=== PATIENT | female | born 1950 | race Caucasian/White ===

== ENCOUNTER 2018-04-09 16:33 | Observation (INO) | payer MEDICARE ==
--- NOTE | 2018-04-09 17:11 | ERPHSYRPT ---
- History of Present Illness Source: patient Exam Limitations: no limitations Patient Subjective Stated Complaint: Dizzy since Monday, sitting in chair and suddenly gets out of breath and gets dizzy Triage Nursing Assessment: Pt stated that she has been dizzy since Monday regardless of what she is doing, gets out of breath sitting in a chair, mild weakness in upper and lower extremeties, pulses normal, BP 88/49, 3L NC, short of breath, PERRL, denies pain, denies N&V Timing/Duration: day(s) (2 days) Severity: moderate Modifying Factors: Improves With: nothing Associated Symptoms: shortness of breath, weakness, other (dizzy), No nausea, No vomiting, No abdominal pain, No heartburn, No diaphoresis, No cough, No chills, No chest pain, No fever, No headaches, No loss of appetite, No malaise, No rash, No syncope, No seizure Hx Tetanus, Diphtheria Vaccination/Date Given: Yes (2013) Hx Influenza Vaccination/Date Given: No Hx Pneumococcal Vaccination/Date Given: No <LISA ROBLES - Last Filed: 04/09/18 19:11> <KARLA ALEX - Last Filed: 04/09/18 22:19> - History of Present Illness Time Seen by Provider: 04/09/18 17:02 Physician History: 68-year-old white female arrives with complaint of feeling dizzy, weak short of breath symptoms for 2 days. Patient states that she'll be sitting in her chair and she will suddenly began feeling dizzy and feeling weak and short of breath. She denies any chest pain no fevers no nausea no vomiting no urinary symptoms. Past medical history includes COPD. Past surgical history includes cholecystectomy, left lung surgery. (LISA ROBLES) Allergies/Adverse Reactions: No Known Drug Allergies Allergy (Verified 04/09/18 17:00) Home Medications: Atorvastatin Calcium [Lipitor 20MG Tablet] 20 mg PO DAILY 04/09/18 [History] Budesonide/Formoterol Fumarate [Symbicort 80-4.5 Mcg Inhaler] 1 inh PO BID 04/09 [History] Calcium Carbonate/Vitamin D3 [Calcium 600 + D3 Softgel] 1 each PO BID 04/09/18 [ History] Clonazepam 0.5 mg [Klonopin 0.5 MG] 0.5 mg PO DAILY 04/09/18 [History] Famotidine 20 mg [Pepcid 20 MG] 20 mg PO DAILY 04/09/18 [History] Isosorbide Mononitrate [Isosorbide Mononitrate ER] 30 mg PO DAILY 04/09/18 [ History] Lisinopril 40 mg PO DAILY 04/09/18 [History] Omeprazole 20 MG [Prilosec 20 mg] 20 mg PO DAILY 04/09/18 [History] Tiotropium [place] [Spiriva] 8 inh PO DAILY 04/09/18 [History] - Review of Systems Constitutional: Weakness, No Fever, No Chills Eyes: No Symptoms Ears, Nose, & Throat: No Symptoms Respiratory: Dyspnea, No Cough, No Cyanosis, No Dyspnea on Exertion (GOMEZ), No Stridor, No Wheezing Cardiac: No Chest Pain, No Edema, No Syncope Abdominal/Gastrointestinal: No Abdominal Pain, No Nausea, No Vomiting, No Diarrhea Genitourinary Symptoms: No Dysuria Musculoskeletal: No Back Pain, No Neck Pain Skin: No Rash Neurological: No Dizziness, No Focal Weakness, No Sensory Changes Psychological: No Symptoms Endocrine: No Symptoms All Other Systems: Reviewed and Negative <LISA ROBLES - Last Filed: 04/09/18 19:11> - Past Medical History Pertinent Past Medical History: Yes Neurological History: No Pertinent History ENT History: No Pertinent History Cardiac History: No Pertinent History, Hypertension Respiratory History: COPD Endocrine Medical History: No Pertinent History Musculoskeletal History: No Pertinent History GI Medical History: No Pertinent History, Hernia History: No Pertinent History Psycho-Social History: No Pertinent History Female Reproductive Disorders: No Pertinent History - Past Surgical History Past Surgical History: Yes Neuro Surgical History: No Pertinent History Cardiac: No Pertinent History Respiratory: No Pertinent History Gastrointestinal: Cholecystectomy, Other Genitourinary: No Pertinent History Musculoskeletal: No Pertinent History Female Surgical History: Hysterectomy Other Surgical History: 1/3 of LEFT LUNG, perforated ulcer in stomach - Social History Smoking Status: Former smoker Exposure to second hand smoke: No Drug Use: none Patient Lives Alone: No - Female History Hx Now: No <LISA ROBLES - Last Filed: 04/09/18 19:11> - Physical Exam General Appearance: no apparent distress, alert Eye Exam: PERRL/EOMI, eyes nml inspection Ears, Nose, Throat Exam: normal ENT inspection, TMs normal, pharynx normal, moist mucous membranes Neck Exam: normal inspection, non-tender, supple, full range of motion Respiratory Exam: normal breath sounds, lungs clear, No respiratory distress Cardiovascular Exam: regular rate/rhythm (mother really impressed ), normal heart sounds, normal peripheral pulses, capillary refill <2 sec Gastrointestinal/Abdomen Exam: soft, normal bowel sounds, No tenderness, No mass Back Exam: normal inspection, normal range of motion, No CVA tenderness, No vertebral tenderness Extremity Exam: normal inspection, normal range of motion, pelvis stable Neurologic Exam: alert, oriented x 3, cooperative, public health technologist II-XII nml as tested, normal mood/affect, nml cerebellar function, nml station & gait, sensation nml, No motor deficits Skin Exam: normal color, warm, dry, No rash SpO2 Interpretation: normal (98%) SpO2: 98 <LISA ROBLES - Last Filed: 04/09/18 19:11> - Nursing Vital Signs Nursing Vital Signs: Initial Vital Signs Temperature 97.7 F 04/09/18 16:46 Pulse Rate 100 H 04/09/18 16:46 Blood Pressure 94/57 04/09/18 16:46 O2 Sat by Pulse Oximetry 98 04/09/18 16:46 Pain Scale Pain Intensity 0 - Course Nursing assessment & vital signs reviewed: Yes - CT Exams Head CT Interpretation: Discussed w/radiologist (head CT: No comparisons. Minimal left maxillary sinus disease and partial opacification of both mastoid air cells. Remaining CT head negative) <LISA ROBLES - Last Filed: 04/09/18 19:11> - CT Exams Head CT Interpretation: Discussed w/radiologist Chest CT Interpretation: Tele-radiologist Report (per Dr Yadav), Other (stable emphysema with worsening scattering fibrosis/scarring, hiatal hernia with partial intrathoracic stomach.) <KARLA ALEX - Last Filed: 04/09/18 22:19> Ordered Tests: Active Orders 24 hr Category Date Time Status Accucheck STAT Care 04/09/18 17:06 Active Chief Of Vital Statistics STAT Care 04/09/18 17:06 Active EKG-ER Only STAT Care 04/09/18 17:06 Active IV Insertion STAT Care 04/09/18 17:06 Active Orthostatic Vital Signs STAT Care 04/09/18 17:08 Active CHEST 1 VIEW (PORTABLE) Stat Exams 04/09/18 17:06 Taken CHEST WITHOUT CONTRAST [CT] Stat Exams 04/09/18 19:28 Taken HEAD WITHOUT CONTRAST [CT] Stat Exams 04/09/18 17:06 Taken CBC W DIFF Stat Lab 04/09/18 17:05 Completed CMP Stat Lab 04/09/18 17:05 Completed CULTURE,URINE Stat Lab 04/09/18 19:00 Received D-DIMER QUANTITATION Stat Lab 04/09/18 Completed ETHYL ALCOHOL Stat Lab 04/09/18 17:05 Completed NT PRO BNP Stat Lab 04/09/18 17:05 Completed TROPONIN Q3H Lab 04/09/18 17:05 Completed TROPONIN Q3H Lab 04/09/18 20:22 Completed TROPONIN Q3H Lab 04/09/18 23:15 Ordered TROPONIN Q3H Lab 04/10/18 02:15 Ordered TROPONIN Q3H Lab 04/10/18 05:15 Ordered UA W/RFX UR CULTURE Stat Lab 04/09/18 19:00 Completed VENOUS BLOOD GAS Stat Lab 04/09/18 17:12 Completed Respiratory Nebulizer STAT RT 04/09/18 18:22 Completed Respiratory Therapy Assessment DAILY RT 04/09/18 18:41 Active Medication Summary Generic Name Dose Route Start Last Admin Trade Name Freq PRN Reason Stop Dose Admin Sodium Chloride 1,000 mls @ 100 mls/hr 04/09/18 17:15 04/09/18 17:15 Sodium Chloride 0.9% 1000 Ml IV 05/09/18 17:14 100 mls/hr .Q10H CHRIS Administration Discontinued Medications Generic Name Dose Route Start Last Admin Trade Name Freq PRN Reason Stop Dose Admin Albuterol/Ipratropium 3 ml 04/09/18 18:22 04/09/18 18:30 Duoneb 0.5-3 Mg/3 Ml Neb IH 04/09/18 18:23 3 ml STAT ONE Administration Albuterol/Ipratropium Confirm 04/09/18 18:28 Duoneb 0.5-3 Mg/3 Ml Neb Administered 04/09/18 18:29 Dose 3 ml IH .STK-MED ONE Lab/Rad Data: Laboratory Result Diagrams 04/09/18 17:05 04/09/18 17:05 Laboratory Results 04/09/18 04/09/18 04/09/18 Range/Units Unknown 20:22 19:00 WBC (4.0-10.5) K/mm3 RBC (4.1-5.4) M/mm3 Hgb (12.0-16.0) gm/dl Hct (35-47) % MCV (78-100) fl MCH (26-32) pg MCHC (32-36) g/dl RDW (11.5-14.0) % Plt Count (150-450) K/mm3 MPV (6-9.5) fl Gran % (36.0-66.0) % Eos # (Auto) (0-0.5) Absolute Lymphs (auto) (1.0-4.6) Absolute Monos (auto) (0.0-1.3) Lymphocytes % (24.0-44.0) % Monocytes % (0.0-12.0) % Eosinophils % (0.00-5.0) % Basophils % (0.0-0.4) % Absolute Granulocytes (1.4-6.9) Basophils # (0-0.4) D-Dimer 797 H* (215-500) ng/mL pO2/FiO2 Ratio % VBG pH (7.32-7.42) VBG pCO2 at Pat Temp (42-55) mm/Hg VBG pO2 at Pat Temp (25-40) mm/Hg VBG HCO3 (22-28) meq/L VBG O2 Sat (Blanca) (95-100) VBG Base Excess (-2.0-2.0) VBG Hemoglobin VBG Carboxyhemoglobin (0.0-6.9) % T HGB POC Potassium (3.5-5.1) Sodium (137-145) mmol/L Potassium (3.5-5.1) mmol/L Chloride (98-107) mmol/L Carbon Dioxide (22-30) mmol/L Anion Gap (5-15) MEQ/L BUN (7-17) mg/dL Creatinine (0.52-1.04) mg/dL Estimated GFR ML/MIN Glucose (74-106) mg/dL Calcium (8.4-10.2) mg/dL Total Bilirubin (0.2-1.3) mg/dL AST (14-36) U/L ALT (0-35) U/L Alkaline Phosphatase (38-126) U/L Troponin I < 0.012 (0.000-0.034) ng/mL NT-Pro-B Natriuret Pep (0-900) pg/mL Serum Total Protein (6.3-8.2) g/dL Albumin (3.5-5.0) g/dL Urine Color DARK YELLOW (YELLOW) Urine Appearance CLOUDY (CLEAR) Urine pH 5.0 (5-6) Ur Specific [place] 1.020 (1.005-1.025) Urine Protein 30 (Negative) Urine Ketones TRACE (NEGATIVE) Urine Blood NEGATIVE (0-5) Pedro/ul Urine Nitrite NEGATIVE (NEGATIVE) Urine Bilirubin NEGATIVE (NEGATIVE) Urine Urobilinogen NEGATIVE (0-1) mg/dL Ur Leukocyte Esterase MODERATE (NEGATIVE) Urine WBC (Auto) 16-25 (0-5) /HPF Urine RBC (Auto) 6-10 (0-2) /HPF U Hyaline Cast (Auto) 26-50 (0-2) /LPF U Epithel Cells (Auto) FEW (FEW) /HPF Urine Bacteria (Auto) FEW (NEGATIVE) /HPF Urine Mucus (Auto) SLIGHT (NEGATIVE) /HPF Urine Culture Reflexed YES (NO) Urine Glucose NEGATIVE (NEGATIVE) mg/dL Ethyl Alcohol (0-10) mg/dL 04/09/18 04/09/18 04/09/18 Range/Units 17:12 17:05 17:05 WBC (4.0-10.5) K/mm3 RBC (4.1-5.4) M/mm3 Hgb (12.0-16.0) gm/dl Hct (35-47) % MCV (78-100) fl MCH (26-32) pg MCHC (32-36) g/dl RDW (11.5-14.0) % Plt Count (150-450) K/mm3 MPV (6-9.5) fl Gran % (36.0-66.0) % Eos # (Auto) (0-0.5) Absolute Lymphs (auto) (1.0-4.6) Absolute Monos (auto) (0.0-1.3) Lymphocytes % (24.0-44.0) % Monocytes % (0.0-12.0) % Eosinophils % (0.00-5.0) % Basophils % (0.0-0.4) % Absolute Granulocytes (1.4-6.9) Basophils # (0-0.4) D-Dimer (215-500) ng/mL pO2/FiO2 Ratio 32.0 % VBG pH 7.34 (7.32-7.42) VBG pCO2 at Pat Temp 45 (42-55) mm/Hg VBG pO2 at Pat Temp 32 (25-40) mm/Hg VBG HCO3 24.3 (22-28) meq/L VBG O2 Sat (Blanca) 63.7 L (95-100) VBG Base Excess -1.6 (-2.0-2.0) VBG Hemoglobin 10.3 VBG Carboxyhemoglobin 3.2 (0.0-6.9) % T HGB POC Potassium 4.4 (3.5-5.1) Sodium 140 (137-145) mmol/L Potassium 4.6 (3.5-5.1) mmol/L Chloride 103 (98-107) mmol/L Carbon Dioxide 24 (22-30) mmol/L Anion Gap 16.9 H (5-15) MEQ/L BUN 24 H (7-17) mg/dL Creatinine 1.52 H (0.52-1.04) mg/dL Estimated GFR 36.4 ML/MIN Glucose 102 (74-106) mg/dL Calcium 9.2 (8.4-10.2) mg/dL Total Bilirubin 0.40 (0.2-1.3) mg/dL AST 31 (14-36) U/L ALT 21 (0-35) U/L Alkaline Phosphatase 124 (38-126) U/L Troponin I < 0.012 (0.000-0.034) ng/mL NT-Pro-B Natriuret Pep 224 (0-900) pg/mL Serum Total Protein 6.6 (6.3-8.2) g/dL Albumin 3.8 (3.5-5.0) g/dL Urine Color (YELLOW) Urine Appearance (CLEAR) Urine pH (5-6) Ur Specific [place] (1.005-1.025) Urine Protein (Negative) Urine Ketones (NEGATIVE) Urine Blood (0-5) Pedro/ul Urine Nitrite (NEGATIVE) Urine Bilirubin (NEGATIVE) Urine Urobilinogen (0-1) mg/dL Ur Leukocyte Esterase (NEGATIVE) Urine WBC (Auto) (0-5) /HPF Urine RBC (Auto) (0-2) /HPF U Hyaline Cast (Auto) (0-2) /LPF U Epithel Cells (Auto) (FEW) /HPF Urine Bacteria (Auto) (NEGATIVE) /HPF Urine Mucus (Auto) (NEGATIVE) /HPF Urine Culture Reflexed (NO) Urine Glucose (NEGATIVE) mg/dL Ethyl Alcohol < 10 (0-10) mg/dL 04/09/18 Range/Units 17:05 WBC 6.4 (4.0-10.5) K/mm3 RBC 3.83 L (4.1-5.4) M/mm3 Hgb 9.8 L (12.0-16.0) gm/dl Hct 31.8 L (35-47) % MCV 83.0 (78-100) fl MCH 25.5 L (26-32) pg MCHC 30.8 L (32-36) g/dl RDW 18.0 H (11.5-14.0) % Plt Count 429 (150-450) K/mm3 MPV 9.5 (6-9.5) fl Gran % 70.9 H (36.0-66.0) % Eos # (Auto) 0.28 (0-0.5) Absolute Lymphs (auto) 1.06 (1.0-4.6) Absolute Monos (auto) 0.48 (0.0-1.3) Lymphocytes % 16.6 L (24.0-44.0) % Monocytes % 7.5 (0.0-12.0) % Eosinophils % 4.4 (0.00-5.0) % Basophils % 0.6 (0.0-0.4) % Absolute Granulocytes 4.51 (1.4-6.9) Basophils # 0.04 (0-0.4) D-Dimer (215-500) ng/mL pO2/FiO2 Ratio % VBG pH (7.32-7.42) VBG pCO2 at Pat Temp (42-55) mm/Hg VBG pO2 at Pat Temp (25-40) mm/Hg VBG HCO3 (22-28) meq/L VBG O2 Sat (Blanca) (95-100) VBG Base Excess (-2.0-2.0) VBG Hemoglobin VBG Carboxyhemoglobin (0.0-6.9) % T HGB POC Potassium (3.5-5.1) Sodium (137-145) mmol/L Potassium (3.5-5.1) mmol/L Chloride (98-107) mmol/L Carbon Dioxide (22-30) mmol/L Anion Gap (5-15) MEQ/L BUN (7-17) mg/dL Creatinine (0.52-1.04) mg/dL Estimated GFR ML/MIN Glucose (74-106) mg/dL Calcium (8.4-10.2) mg/dL Total Bilirubin (0.2-1.3) mg/dL AST (14-36) U/L ALT (0-35) U/L Alkaline Phosphatase (38-126) U/L Troponin I (0.000-0.034) ng/mL NT-Pro-B Natriuret Pep (0-900) pg/mL Serum Total Protein (6.3-8.2) g/dL Albumin (3.5-5.0) g/dL Urine Color (YELLOW) Urine Appearance (CLEAR) Urine pH (5-6) Ur Specific [place] (1.005-1.025) Urine Protein (Negative) Urine Ketones (NEGATIVE) Urine Blood (0-5) Pedro/ul Urine Nitrite (NEGATIVE) Urine Bilirubin (NEGATIVE) Urine Urobilinogen (0-1) mg/dL Ur Leukocyte Esterase (NEGATIVE) Urine WBC (Auto) (0-5) /HPF Urine RBC (Auto) (0-2) /HPF U Hyaline Cast (Auto) (0-2) /LPF U Epithel Cells (Auto) (FEW) /HPF Urine Bacteria (Auto) (NEGATIVE) /HPF Urine Mucus (Auto) (NEGATIVE) /HPF Urine Culture Reflexed (NO) Urine Glucose (NEGATIVE) mg/dL Ethyl Alcohol (0-10) mg/dL - Progress Progress: improved <LISA ROBLES - Last Filed: 04/09/18 19:11> - Progress Discussed with : Cecilia Counseled pt/family regarding: lab results, diagnosis, rad results <KARLA ALEX - Last Filed: 04/09/18 22:19> - Progress Progress Note: 04/09/18 19:10 patient patient's case is discussed with Dr. Alex, He will assume care of this patient secondary to shift change, (LISA ROBLES) 04/09/18 19:27 Pt care discussed and care accepted from Dr Robles at 19:00. (KARLA ALEX) <LISA ROBLES - Last Filed: 04/09/18 19:11> - Departure Time of Disposition: 22:12 Departure Disposition: Observation (per Dr Gee Medrano) Critical Care Time: No <KARLA ALEX - Last Filed: 04/09/18 22:19> - Departure Clinical Impression: Dyspnea, Renal failure, UTI (urinary tract infection) Condition: Stable Referrals: MENDOZA VALDIVIA MD [ACTIVE STAFF] -
[2018-04-09] MEDS ORDERED: Sodium Chloride 0.9% 1000 ML 1,000 ML IV SCH (17:15)
[2018-04-09 17:16] LABS: VBG BASE EXCESS -1.6 (-2.0-2.0); VBG CARBOXYHEMOGLOBIN 3.2 % T HGB (0.0-6.9); VBG HCO3- 24.3 meq/L (22-28); VBG HEMOGLOBIN 10.3; VBG O2 SATURATION 63.7 (95-100); VBG POTASSIUM 4.4 (3.5-5.1); VBG pH 7.34 (7.32-7.42)
[2018-04-09] MEDS ORDERED: Sodium Chloride 0.9% 1000 ML 1,000 ML ONE (17:16)
[2018-04-09 17:32] LABS: BASOPHIL % 0.6 % (0.0-0.4); Basophil (Absolute #) 0.04 (0-0.4); Eosinophil % 4.4 % (0.00-5.0); Eosinophil (Absolute #) 0.28 (0-0.5); Granulocyte Absolute (ANC) 4.51 (1.4-6.9); Granulocytes % 70.9 % (36.0-66.0); Hematocrit 31.8 % (35-47); Hemoglobin 9.8 gm/dl (12.0-16.0); Lymphocyte (Absolute #) 1.06 (1.0-4.6); Lymphocytes % 16.6 % (24.0-44.0); Mean Corpuscular Hgb Concent. 30.8 g/dl (32-36); Mean Platelet Volume 9.5 fl (6-9.5); Monocyte (Absolute #) 0.48 (0.0-1.3); Monocytes % 7.5 % (0.0-12.0); Platelet Count 429 K/mm3 (150-450); Red Blood Count 3.83 M/mm3 (4.1-5.4); White Blood Count 6.4 K/mm3 (4.0-10.5)
[2018-04-09 17:41] LABS: Mean Corpuscular Hemoglobin 25.5 pg (26-32)
[2018-04-09 17:59] LABS: ALBUMIN 3.8 g/dL (3.5-5.0); ALKALINE PHOSPHATASE 124 U/L (38-126); ANION GAP 16.9 MEQ/L (5-15); BLOOD UREA NITROGEN 24 mg/dL (7-17); CHLORIDE 103 mmol/L (98-107); Calcium 9.2 mg/dL (8.4-10.2); Carbon Dioxide 24 mmol/L (22-30); Creatinine 1 1.52 mg/dL (0.52-1.04); Glucose 102 mg/dL (74-106); NT PRO BNP 224 pg/mL (0-900); Potassium 4.6 mmol/L (3.5-5.1); SGOT/AST 31 U/L (14-36); SGPT/ALT 21 U/L (0-35); SODIUM 140 mmol/L (137-145); Total Protein 6.6 g/dL (6.3-8.2)
[2018-04-09 18:02] LABS: ETHYL ALCOHOL < 10 mg/dL (0-10)
[2018-04-09] MEDS ORDERED: DUONEB 0.5-3 MG/3 ml Neb IH ONE ×2 (18:22→18:28)
[2018-04-09 19:46] LABS: Appearance CLOUDY (CLEAR); Bilirubin NEGATIVE (NEGATIVE); Blood NEGATIVE Ery/ul (0-5); Glucose NEGATIVE (NEGATIVE); Ketones TRACE (NEGATIVE); Leukocyte Esterase MODERATE (NEGATIVE); Nitrite NEGATIVE (NEGATIVE); Protein,Urine Dip 30 (Negative); Urobilinogen NEGATIVE mg/dL (0-1)
[2018-04-10] MEDS: Sodium Chloride 0.9% 1000 ML 1,000 ML IV SCH ×2 (03:22→19:49)
[2018-04-10 05:59] LABS: Hematocrit 29.4 % (35-47); Mean Cell Volume 83.3 fl (78-100); Mean Corpuscular Hgb Concent. 30.6 g/dl (32-36); Mean Platelet Volume 9.6 fl (6-9.5); Platelet Count 422 K/mm3 (150-450); Red Blood Count 3.53 M/mm3 (4.1-5.4); Red Cell Distribution Width 18.4 % (11.5-14.0); White Blood Count 7.2 K/mm3 (4.0-10.5)
[2018-04-10 06:02] LABS: Mean Corpuscular Hemoglobin 25.4 pg (26-32)
[2018-04-10 06:13] LABS: ANION GAP 10.5 MEQ/L (5-15); Calcium 8.8 mg/dL (8.4-10.2); Creatinine 1 1.25 mg/dL (0.52-1.04); Potassium 4.2 mmol/L (3.5-5.1)
[2018-04-10] MEDS: PROVENTIL 2.5 MG/3 ML NEB IH SCH ×4 (06:52→20:09)
[2018-04-10] MEDS: Advair Hfa 230/21 Mcg COMMON CANISTER IH SCH ×2 (06:53→20:09)
[2018-04-10] MEDS ORDERED: Spiriva 18 Mcg/Cap Inhaler IH SCH (07:00)
[2018-04-10] MEDS ORDERED: ENOXAPARIN SODIUM SQ ONE (08:03)
[2018-04-10] MEDS ORDERED: solu-MEDROL 125 MG IV ONE (08:14)
--- NOTE | 2018-04-10 08:14 | PCM.HP ---
History of Present Illness - Chief Complaint Chief Complaint: COPD/ASTHMA Date: 04/10/18 History of Present Illness: is a 68 year old female. patient of Dr. Ferreira pulmonology who states she has no primary care doctor and has been on oxygen for 8 years with partial lung resection 3 years ago for benign nodules. She had increasing shortness of breath and lightheadedness and weakness for the past 5 days. She has chronic cough. She has been using her symbicort and spirivia. She denies chest pain or productive coughing. She denies history of blood clots and no pain or swelling in the legs. - Review of Systems Constitutional: Fatigue, Weakness, No Fever, No Chills, No Night Sweats Eyes: No Symptoms Ears, Nose, & Throat: No Symptoms, Hearing Changes, Nose Congestion, Sinus Drainage Respiratory: Cough, Short Of Breath, Wheezing Cardiac: No Chest Pain, No Edema, No Palpitations, No Syncope, No Orthopnea Abdominal/Gastrointestinal: No Abdominal Pain, No Nausea, No Vomiting, No Diarrhea, No Constipation, No Hematochezia, No Melena Genitourinary Symptoms: Frequency, No Dysuria Musculoskeletal: Arthralgias, Back Pain, No Neck Pain Skin: No Rash Neurological: Dizziness, No Focal Weakness, No Headache, No Seizure, No Sensory Changes, No Speech Changes Psychological: No Symptoms Endocrine: No Symptoms Hematologic/Lymphatic: No Symptoms Immunological/Allergic: No Symptoms Medications & Allergies Home Medications: Home Medication List Atorvastatin Calcium [Lipitor 20MG Tablet] 20 mg PO DAILY 04/09/18 [History Confirmed 04/10/18] Budesonide/Formoterol Fumarate [Symbicort 80-4.5 Mcg Inhaler] 1 inh PO BID 04/09 [History Confirmed 04/10/18] Calcium Carbonate/Vitamin D3 [Calcium 600 + D3 Softgel] 1 each PO BID 04/09/18 [ History Confirmed 04/10/18] Clonazepam 0.5 mg [Klonopin 0.5 MG] 0.5 mg PO DAILY 04/09/18 [History Confirmed 04/10/18] Famotidine 20 mg [Pepcid 20 MG] 20 mg PO DAILY 04/09/18 [History Confirmed 04/10/18] Isosorbide Mononitrate [Isosorbide Mononitrate ER] 30 mg PO DAILY 04/09/18 [ History Confirmed 04/10/18] Lisinopril 40 mg PO DAILY 04/09/18 [History Confirmed 04/10/18] Omeprazole 20 MG [Prilosec 20 mg] 20 mg PO DAILY 04/09/18 [History Confirmed ] Tiotropium [place] [Spiriva] 8 inh PO DAILY 04/09/18 [History Confirmed 04/10/18 ] Allergies/Adverse Reactions: Allergies Allergy/AdvReac Type Severity Reaction Status Date / Time No Known Drug Allergies Allergy Verified 04/09/18 17:00 - Past Medical History Past Medical History: Yes Neurological History: No Pertinent History ENT History: No Pertinent History Cardiac History: Hypertension Respiratory History: Asthma, COPD Endocrine Medical History: No Pertinent History Musculoskelatal History: No Pertinent History GI Medical History: Hernia History: No Pertinent History Pyscho-Social History: No Pertinent History Reproductive Disorders: No Pertinent History - Female History Are you now?: No - Past Surgical History Past Surgical History: Yes Neuro Surgical History: No Pertinent History Cardiac History: No Pertinent History Respiratory Surgery: No Pertinent History GI Surgical History: Cholecystectomy, Other Genitourinary Surgical Hx: No Pertinent History Musculskeletal Surgical Hx: No Pertinent History Female Surgical History: Hysterectomy Other Surgical History: 1/3 of LEFT LUNG, perforated ulcer in stomach - Social History Smoking Status: Former smoker How long have you smoked: 12 Exposure to second hand smoke: Yes Alcohol: None Drug Use: none - Physical Exam Vital Signs: Vital Signs - 24 hr Temp Pulse Resp BP Pulse Ox 04/10/18 07:10 98.1 F 84 20 126/66 96 04/10/18 06:55 91 H 18 97 04/10/18 04:00 98.1 F 85 24 131/57 98 04/10/18 03:51 96 H 26 H 128/62 97 04/10/18 03:50 105 H 28 H 127/59 91 L 04/10/18 03:49 99 H 26 H 123/55 96 04/10/18 03:42 96 04/10/18 02:20 98.0 F 94 H 24 131/61 95 04/10/18 02:18 95 04/10/18 01:58 98 F 94 H 24 131/61 95 04/10/18 00:33 95 H 17 125/48 96 04/09/18 22:35 71 18 95 04/09/18 20:50 95 H 25 H 118/57 97 04/09/18 20:00 98.1 F 18 118/57 96 04/09/18 19:11 98 04/09/18 19:05 97.7 F 96 H 22 113/58 97 04/09/18 18:41 96 H 22 97 04/09/18 16:46 97.7 F 100 H 94/57 98 Oxygen-Last 24 hours O2 Percentage 2 Liters = 28% O2 Percentage 2 Liters = 28% O2 Percentage 3 Liters = 32% O2 Percentage 2 Liters = 28% O2 Percentage 2 Liters = 28% O2 Percentage 2 Liters = 28% O2 Percentage 2 Liters = 28% O2 Percentage 2 Liters = 28% O2 Percentage 2 Liters = 28% General Appearance: no apparent distress, alert Neurologic Exam: alert, oriented x 3, cooperative, normal mood/affect, sensation nml, No motor deficits Eye Exam: PERRL/EOMI, eyes nml inspection, pale conjunctivae, No scleral icterus Ears, Nose, Throat Exam: pharynx normal, moist mucous membranes, dry mucous membranes Neck Exam: normal inspection, non-tender, supple, full range of motion Respiratory Exam: crackles/rales, wheezing Cardiovascular Exam: normal peripheral pulses, tachycardia, No edema Gastrointestinal/Abdomen Exam: soft, normal bowel sounds, No tenderness, No mass Back Exam: normal inspection, normal range of motion, No CVA tenderness, No vertebral tenderness Extremity Exam: normal inspection, normal range of motion, pelvis stable Skin Exam: normal color, warm, dry, No rash Lymphatic Exam: No adenopathy Results - Labs Lab/Micro Results: Accuchecks Accucheck Value: 103 Lab Results-Last 24 Hours 04/09/18 04/09/18 04/09/18 Range/Units 17:05 17:05 17:05 WBC 6.4 (4.0-10.5) K/mm3 RBC 3.83 L (4.1-5.4) M/mm3 Hgb 9.8 L (12.0-16.0) gm/dl Hct 31.8 L (35-47) % MCV 83.0 (78-100) fl MCH 25.5 L (26-32) pg MCHC 30.8 L (32-36) g/dl RDW 18.0 H (11.5-14.0) % Plt Count 429 (150-450) K/mm3 MPV 9.5 (6-9.5) fl Gran % 70.9 H (36.0-66.0) % Eos # (Auto) 0.28 (0-0.5) Absolute Lymphs (auto) 1.06 (1.0-4.6) Absolute Monos (auto) 0.48 (0.0-1.3) Lymphocytes % 16.6 L (24.0-44.0) % Monocytes % 7.5 (0.0-12.0) % Eosinophils % 4.4 (0.00-5.0) % Basophils % 0.6 (0.0-0.4) % Absolute Granulocytes 4.51 (1.4-6.9) Basophils # 0.04 (0-0.4) D-Dimer (215-500) ng/mL pO2/FiO2 Ratio % VBG pH (7.32-7.42) VBG pCO2 at Pat Temp (42-55) mm/Hg VBG pO2 at Pat Temp (25-40) mm/Hg VBG HCO3 (22-28) meq/L VBG O2 Sat (Blanca) (95-100) VBG Base Excess (-2.0-2.0) VBG Hemoglobin VBG Carboxyhemoglobin (0.0-6.9) % T HGB POC Potassium (3.5-5.1) Sodium 140 (137-145) mmol/L Potassium 4.6 (3.5-5.1) mmol/L Chloride 103 (98-107) mmol/L Carbon Dioxide 24 (22-30) mmol/L Anion Gap 16.9 H (5-15) MEQ/L BUN 24 H (7-17) mg/dL Creatinine 1.52 H (0.52-1.04) mg/dL Estimated GFR 36.4 ML/MIN Glucose 102 (74-106) mg/dL Calcium 9.2 (8.4-10.2) mg/dL Magnesium (1.6-2.3) mg/dL Total Bilirubin 0.40 (0.2-1.3) mg/dL AST 31 (14-36) U/L ALT 21 (0-35) U/L Alkaline Phosphatase 124 (38-126) U/L Troponin I < 0.012 (0.000-0.034) ng/mL NT-Pro-B Natriuret Pep 224 (0-900) pg/mL Serum Total Protein 6.6 (6.3-8.2) g/dL Albumin 3.8 (3.5-5.0) g/dL Urine Color (YELLOW) Urine Appearance (CLEAR) Urine pH (5-6) Ur Specific Rice (1.005-1.025) Urine Protein (Negative) Urine Ketones (NEGATIVE) Urine Blood (0-5) Pedro/ul Urine Nitrite (NEGATIVE) Urine Bilirubin (NEGATIVE) Urine Urobilinogen (0-1) mg/dL Ur Leukocyte Esterase (NEGATIVE) Urine WBC (Auto) (0-5) /HPF Urine RBC (Auto) (0-2) /HPF U Hyaline Cast (Auto) (0-2) /LPF U Epithel Cells (Auto) (FEW) /HPF Urine Bacteria (Auto) (NEGATIVE) /HPF Urine Mucus (Auto) (NEGATIVE) /HPF Urine Culture Reflexed (NO) Urine Glucose (NEGATIVE) mg/dL Ethyl Alcohol < 10 (0-10) mg/dL 04/09/18 04/09/18 04/09/18 Range/Units 17:12 19:00 20:22 WBC (4.0-10.5) K/mm3 RBC (4.1-5.4) M/mm3 Hgb (12.0-16.0) gm/dl Hct (35-47) % MCV (78-100) fl MCH (26-32) pg MCHC (32-36) g/dl RDW (11.5-14.0) % Plt Count (150-450) K/mm3 MPV (6-9.5) fl Gran % (36.0-66.0) % Eos # (Auto) (0-0.5) Absolute Lymphs (auto) (1.0-4.6) Absolute Monos (auto) (0.0-1.3) Lymphocytes % (24.0-44.0) % Monocytes % (0.0-12.0) % Eosinophils % (0.00-5.0) % Basophils % (0.0-0.4) % Absolute Granulocytes (1.4-6.9) Basophils # (0-0.4) D-Dimer (215-500) ng/mL pO2/FiO2 Ratio 32.0 % VBG pH 7.34 (7.32-7.42) VBG pCO2 at Pat Temp 45 (42-55) mm/Hg VBG pO2 at Pat Temp 32 (25-40) mm/Hg VBG HCO3 24.3 (22-28) meq/L VBG O2 Sat (Blanca) 63.7 L (95-100) VBG Base Excess -1.6 (-2.0-2.0) VBG Hemoglobin 10.3 VBG Carboxyhemoglobin 3.2 (0.0-6.9) % T HGB POC Potassium 4.4 (3.5-5.1) Sodium (137-145) mmol/L Potassium (3.5-5.1) mmol/L Chloride (98-107) mmol/L Carbon Dioxide (22-30) mmol/L Anion Gap (5-15) MEQ/L BUN (7-17) mg/dL Creatinine (0.52-1.04) mg/dL Estimated GFR ML/MIN Glucose (74-106) mg/dL Calcium (8.4-10.2) mg/dL Magnesium (1.6-2.3) mg/dL Total Bilirubin (0.2-1.3) mg/dL AST (14-36) U/L ALT (0-35) U/L Alkaline Phosphatase (38-126) U/L Troponin I < 0.012 (0.000-0.034) ng/mL NT-Pro-B Natriuret Pep (0-900) pg/mL Serum Total Protein (6.3-8.2) g/dL Albumin (3.5-5.0) g/dL Urine Color DARK YELLOW (YELLOW) Urine Appearance CLOUDY (CLEAR) Urine pH 5.0 (5-6) Ur Specific Rice 1.020 (1.005-1.025) Urine Protein 30 (Negative) Urine Ketones TRACE (NEGATIVE) Urine Blood NEGATIVE (0-5) Pedro/ul Urine Nitrite NEGATIVE (NEGATIVE) Urine Bilirubin NEGATIVE (NEGATIVE) Urine Urobilinogen NEGATIVE (0-1) mg/dL Ur Leukocyte Esterase MODERATE (NEGATIVE) Urine WBC (Auto) 16-25 (0-5) /HPF Urine RBC (Auto) 6-10 (0-2) /HPF U Hyaline Cast (Auto) 26-50 (0-2) /LPF U Epithel Cells (Auto) FEW (FEW) /HPF Urine Bacteria (Auto) FEW (NEGATIVE) /HPF Urine Mucus (Auto) SLIGHT (NEGATIVE) /HPF Urine Culture Reflexed YES (NO) Urine Glucose NEGATIVE (NEGATIVE) mg/dL Ethyl Alcohol (0-10) mg/dL 04/09/18 04/09/18 04/10/18 Range/Units 23:20 Unknown 02:17 WBC (4.0-10.5) K/mm3 RBC (4.1-5.4) M/mm3 Hgb (12.0-16.0) gm/dl Hct (35-47) % MCV (78-100) fl MCH (26-32) pg MCHC (32-36) g/dl RDW (11.5-14.0) % Plt Count (150-450) K/mm3 MPV (6-9.5) fl Gran % (36.0-66.0) % Eos # (Auto) (0-0.5) Absolute Lymphs (auto) (1.0-4.6) Absolute Monos (auto) (0.0-1.3) Lymphocytes % (24.0-44.0) % Monocytes % (0.0-12.0) % Eosinophils % (0.00-5.0) % Basophils % (0.0-0.4) % Absolute Granulocytes (1.4-6.9) Basophils # (0-0.4) D-Dimer 797 H* (215-500) ng/mL pO2/FiO2 Ratio % VBG pH (7.32-7.42) VBG pCO2 at Pat Temp (42-55) mm/Hg VBG pO2 at Pat Temp (25-40) mm/Hg VBG HCO3 (22-28) meq/L VBG O2 Sat (Blanca) (95-100) VBG Base Excess (-2.0-2.0) VBG Hemoglobin VBG Carboxyhemoglobin (0.0-6.9) % T HGB POC Potassium (3.5-5.1) Sodium (137-145) mmol/L Potassium (3.5-5.1) mmol/L Chloride (98-107) mmol/L Carbon Dioxide (22-30) mmol/L Anion Gap (5-15) MEQ/L BUN (7-17) mg/dL Creatinine (0.52-1.04) mg/dL Estimated GFR ML/MIN Glucose (74-106) mg/dL Calcium (8.4-10.2) mg/dL Magnesium (1.6-2.3) mg/dL Total Bilirubin (0.2-1.3) mg/dL AST (14-36) U/L ALT (0-35) U/L Alkaline Phosphatase (38-126) U/L Troponin I < 0.012 < 0.012 (0.000-0.034) ng/mL NT-Pro-B Natriuret Pep (0-900) pg/mL Serum Total Protein (6.3-8.2) g/dL Albumin (3.5-5.0) g/dL Urine Color (YELLOW) Urine Appearance (CLEAR) Urine pH (5-6) Ur Specific [place] (1.005-1.025) Urine Protein (Negative) Urine Ketones (NEGATIVE) Urine Blood (0-5) Pedro/ul Urine Nitrite (NEGATIVE) Urine Bilirubin (NEGATIVE) Urine Urobilinogen (0-1) mg/dL Ur Leukocyte Esterase (NEGATIVE) Urine WBC (Auto) (0-5) /HPF Urine RBC (Auto) (0-2) /HPF U Hyaline Cast (Auto) (0-2) /LPF U Epithel Cells (Auto) (FEW) /HPF Urine Bacteria (Auto) (NEGATIVE) /HPF Urine Mucus (Auto) (NEGATIVE) /HPF Urine Culture Reflexed (NO) Urine Glucose (NEGATIVE) mg/dL Ethyl Alcohol (0-10) mg/dL 04/10/18 04/10/18 04/10/18 Range/Units 05:20 05:20 05:20 WBC 7.2 (4.0-10.5) K/mm3 RBC 3.53 L (4.1-5.4) M/mm3 Hgb 9.0 L (12.0-16.0) gm/dl Hct 29.4 L (35-47) % MCV 83.3 (78-100) fl MCH 25.4 L (26-32) pg MCHC 30.6 L D (32-36) g/dl RDW 18.4 H (11.5-14.0) % Plt Count 422 (150-450) K/mm3 MPV 9.6 H (6-9.5) fl Gran % (36.0-66.0) % Eos # (Auto) (0-0.5) Absolute Lymphs (auto) (1.0-4.6) Absolute Monos (auto) (0.0-1.3) Lymphocytes % (24.0-44.0) % Monocytes % (0.0-12.0) % Eosinophils % (0.00-5.0) % Basophils % (0.0-0.4) % Absolute Granulocytes (1.4-6.9) Basophils # (0-0.4) D-Dimer (215-500) ng/mL pO2/FiO2 Ratio % VBG pH (7.32-7.42) VBG pCO2 at Pat Temp (42-55) mm/Hg VBG pO2 at Pat Temp (25-40) mm/Hg VBG HCO3 (22-28) meq/L VBG O2 Sat (Blanca) (95-100) VBG Base Excess (-2.0-2.0) VBG Hemoglobin VBG Carboxyhemoglobin (0.0-6.9) % T HGB POC Potassium (3.5-5.1) Sodium 139 (137-145) mmol/L Potassium 4.2 (3.5-5.1) mmol/L Chloride 106 (98-107) mmol/L Carbon Dioxide 27 (22-30) mmol/L Anion Gap 10.5 (5-15) MEQ/L BUN 31 H (7-17) mg/dL Creatinine 1.25 H (0.52-1.04) mg/dL Estimated GFR 45.6 ML/MIN Glucose 98 (74-106) mg/dL Calcium 8.8 (8.4-10.2) mg/dL Magnesium 2.4 H (1.6-2.3) mg/dL Total Bilirubin (0.2-1.3) mg/dL AST (14-36) U/L ALT (0-35) U/L Alkaline Phosphatase (38-126) U/L Troponin I < 0.012 (0.000-0.034) ng/mL NT-Pro-B Natriuret Pep (0-900) pg/mL Serum Total Protein (6.3-8.2) g/dL Albumin (3.5-5.0) g/dL Urine Color (YELLOW) Urine Appearance (CLEAR) Urine pH (5-6) Ur Specific Rice (1.005-1.025) Urine Protein (Negative) Urine Ketones (NEGATIVE) Urine Blood (0-5) Pedro/ul Urine Nitrite (NEGATIVE) Urine Bilirubin (NEGATIVE) Urine Urobilinogen (0-1) mg/dL Ur Leukocyte Esterase (NEGATIVE) Urine WBC (Auto) (0-5) /HPF Urine RBC (Auto) (0-2) /HPF U Hyaline Cast (Auto) (0-2) /LPF U Epithel Cells (Auto) (FEW) /HPF Urine Bacteria (Auto) (NEGATIVE) /HPF Urine Mucus (Auto) (NEGATIVE) /HPF Urine Culture Reflexed (NO) Urine Glucose (NEGATIVE) mg/dL Ethyl Alcohol (0-10) mg/dL Accuchecks Accucheck Value: 103 - Radiology Impressions Radiology Exams & Impressions: Radiology Procedures Category Date Time Status CHEST 1 VIEW (PORTABLE) Stat Exams 04/09/18 17:06 Taken CHEST WITHOUT CONTRAST [CT] Stat Exams 04/09/18 19:28 Taken HEAD WITHOUT CONTRAST [CT] Stat Exams 04/09/18 17:06 Taken PULMONARY PERF VENTILATION [NUCMED] Stat Exams 04/10/18 02:18 Ordered - Other Procedures and Tests Respiratory Therapy 04/10/18 02:18 Oxygen NASAL CANNULA 2 lpm 04/10/18 07:00 Peak Expiratory Flow Rate ONCE Respiratory Therapy Assessment DAILY Assessment/Plan (1) COPD exacerbation Current Visit: Yes Status: Acute Assessment & Plan: she has more wheezing it appears on exam this am schedule duonebs add steroid will give 125 mg iv solumedrol and monitor gentle hydration with the renal insufficiency of unknown duration and ceftriaxone for the uti awaiting vq scan on chronic oxygen therapy Code(s): J44.1 - CHRONIC OBSTRUCTIVE PULMONARY DISEASE W (ACUTE) EXACERBATION (2) UTI (urinary tract infection) Current Visit: Yes Status: Acute Code(s): N39.0 - URINARY TRACT INFECTION, SITE NOT SPECIFIED (3) Elevated d-dimer Current Visit: Yes Status: Acute Code(s): R79.89 - OTHER SPECIFIED ABNORMAL FINDINGS OF BLOOD CHEMISTRY (4) Renal insufficiency Current Visit: Yes Status: Chronic
--- NOTE | 2018-04-10 08:42 | XRAY ---
Indication: Chronic short of breath. Cough. History COPD. Multiple contiguous axial images obtained through the chest without contrast as ordered. Comparison: February 17, 2009. There remains mild pulmonary emphysema with interval worsening scattered fibrosis/scarring. New suture material in the left upper lobe and new right lower lobe calcified granulomas. No new pulmonary mass/nodule, infiltrate, or effusion. Heart is not enlarged. Aorta minimally atherosclerotic without aneurysmal dilatation. No pathologic mediastinal lymphadenopathy. New moderate size hiatal hernia with partial intrathoracic stomach. Bony thorax demonstrates new remote-appearing T9-T10/L1/L3-L4 compression fractures and healing right 8/9 rib fractures. Limited upper abdomen again demonstrates hepatic/splenic calcified granulomas. Impression: 1. Chronic findings including pulmonary emphysema, scattered fibrosis/scarring, and evidence for old granulomatous disease. No acute cardiopulmonary abnormalities on this noncontrast exam. 2. New hiatal hernia with partial intrathoracic stomach and left upper lobe postsurgical changes. 3. New finding remote appearing multilevel thoracolumbar compression fractures and healing right 8/[address] DI 16.48
--- NOTE | 2018-04-10 08:43 | XRAY ---
Indication: Dizziness. Multiple contiguous axial images obtained through the head without contrast. Comparison: None Normal appearing brain parenchyma, ventricles, and bony calvarium. Small fluid leveling in the left maxillary sinus and partial opacification of both mastoid air cells. Impression: 1. No acute intracranial abnormalities. 2. Incidental left maxillary sinus fluid leveling and partial opacification of both mastoid air cells presumed inflammatory. CT DI 68.81
--- NOTE | 2018-04-10 08:44 | XRAY ---
Indication: Dizziness. Comparison: September 27, 2010. Portable chest less inflated today crowding the lung bases. New left suprahilar suture material and moderate sized hiatal hernia. No focal infiltrate, consolidation, or large effusion. Heart is not enlarged for AP portable technique. Bony thorax intact with mild osteopenia. Incidental moderate carotid calcifications bilaterally. Impression: Nonacute underinflated chest with chronic features.
[2018-04-10] MEDS: Calcium 500MG W/Vit D Tablet PO SCH ×2 (09:49→21:29)
[2018-04-10] MEDS ORDERED: ROCEPHIN 1 Gm-D5w 50 ml Bag** 1 G/50 ML IVPB IV SCH (10:00)
[2018-04-10] MEDS ORDERED: [UNRECOGNIZED DRUG - OTHER] PO SCH (10:00)
[2018-04-10] MEDS ORDERED: Imdur 30 MG PO SCH (10:00)
[2018-04-10] MEDS ORDERED: CALCIUM CARBONATE PO SCH (10:00)
[2018-04-10] MEDS ORDERED: VITAMIN D3 PO SCH (10:00)
[2018-04-10] MEDS ORDERED: Protonix 40MG Tablet PO SCH (10:00)
[2018-04-10] MEDS ORDERED: NON-FORMULARY ITEM (Atorvastatin Calcium 20 MG) PO SCH (10:00)
[2018-04-10] MEDS ORDERED: Klonopin 0.5 MG PO SCH (10:00)
[2018-04-10] MEDS ORDERED: Zestril 20 MG PO SCH (10:00)
[2018-04-10] MEDS ORDERED: Pepcid 20 MG PO SCH (10:00)
--- NOTE | 2018-04-10 12:11 | XRAY ---
Indication: Short of breath, elevated d-dimer, and abdomen pain. Multiple contiguous axial images obtained through the chest using 80 cc Isovue 370 contrast and PE protocol. Comparison: Noncontrast CT chest one day earlier. There is satisfactory opacification of the pulmonary arteries to include the lobar and segmental branches. No filling defect or pulmonary embolus. Heart is not enlarged. Aorta normal in course and caliber. No pathologic mediastinal/hilar lymphadenopathy. Stable moderate sized hiatal hernia with partial intrathoracic stomach. Lungs unchanged again demonstrating pulmonary emphysema, scattered fibrosis/scarring, left upper lobe suture material, and right lower lobe calcified granulomas. No new pulmonary mass, infiltrate, or effusion. Stable multilevel thoracolumbar compression fractures and right 8/9 rib fractures. Impression: 1. Negative pulmonary embolus. 2. No new/acute cardiopulmonary abnormalities. 3. Stable pulmonary emphysema, fibrosis/scarring, left upper lobe postsurgical changes, hiatal hernia with partial intrathoracic stomach, evidence for old granulomatous disease, remote multilevel thoracolumbar compression fractures, and healing right rib fractures. CT DI 19.16
[2018-04-10] MEDS: solu-MEDROL 125 MG IV SCH ×2 (14:37→19:46)
[2018-04-10] MEDS ORDERED: ZOCOR 20MG PO SCH (22:00)
[2018-04-11] MEDS: solu-MEDROL 125 MG IV SCH ×2 (02:22→07:35)
[2018-04-11] MEDS: PROVENTIL 2.5 MG/3 ML NEB IH SCH (05:51)
[2018-04-11] MEDS: Advair Hfa 230/21 Mcg COMMON CANISTER IH SCH (06:02)
[2018-04-11 06:18] LABS: Iron 30 ug/dL (37-170); Iron Saturation 12 % (20-39); TIBC 254 ug/dL (265-462)
[2018-04-11] MEDS: DUONEB 0.5-3 MG/3 ml Neb IH SCH ×2 (06:20→06:21)
[2018-04-11 06:27] VITALS: O2SAT 96
[2018-04-11 07:42] LABS: ANION GAP 11.4 MEQ/L (5-15); BLOOD UREA NITROGEN 19 mg/dL (7-17); CHLORIDE 110 mmol/L (98-107); Calcium 9.7 mg/dL (8.4-10.2); Carbon Dioxide 25 mmol/L (22-30); Creatinine 1 0.59 mg/dL (0.52-1.04); Folate (Folic Acid) 9.78 ng/mL (2.76 - >20); Glucose 122 mg/dL (74-106); Potassium 4.8 mmol/L (3.5-5.1); SODIUM 141 mmol/L (137-145); Vitamin B12 898 pg/mL (239-931)
--- NOTE | 2018-04-11 08:46 | PCM.DS ---
Discharge Summary Date of Admission: 04/10/18 01:44 Date of Discharge: 04/11/18 Admitting Physician: KHANH HERRERA Consults: Consults on Case 04/10/18 02:18 Consult Pulmonology ROUTINE Allergies Allergies No Known Drug Allergies Allergy (Verified 04/09/18 17:00) Hospital Summary - Hospital Course Hospital Course: Ms. Thomas suffers from emphysema and follows with Dr. Gonzalez and had previous lobectomy for benign reason. She has had increases shortness of breath for 2 weeks and was eventually forced to come to ED by her daughters due to worsening dyspnea. Initial evaluation showed impaired GFR with no known baseline and an elevated d dimer with tachycardia, tachypnea and it was felt prudent to rule out PE. She was placed in observation and given gentle hydration. The renal function improved she was started on iv steroids and antibiotics and this seemed to be improving her dyspnea. With the improved renal function a CT PE protocol was obtained with no pe or pneumonia. She was continued on hydration after the contrast and renal funciton improved. Her breathing was still shallow and dyspneic with minimal exertion this was improving after the 24 hours of steroids. 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 She also is re- establishing with her PCP Dr. Mondragon this month according the her daughters after being dropped previously due an insurance coverage problem. Her bp was high and hr was elevated she did well on the metoprolol in the hospital and this was continued at discharge. Her iron studies show deficiency and she was started on iron and will need outpatient f/u consideration of colonoscopy/egd for r/o source of blood loss - Vitals & Intake/Output Vital Signs: Vital Signs Temperature 97.5 F 04/11/18 07:29 Pulse Rate 110 H 04/11/18 07:29 Respiratory Rate 18 04/11/18 07:45 Blood Pressure 169/75 04/11/18 07:29 O2 Sat by Pulse Oximetry 96 04/11/18 07:29 Oxygen-Last Documented O2 Percentage 2 Liters = 28% Intake & Output: Intake & Output 04/08/18 04/09/18 04/10/18 04/11/18 11:59 11:59 11:59 11:59 Intake Total 240 1560 Output Total 350 1600 Balance -110 -40 Weight 72 kg 71.6 kg - Lab Result Diagrams: 04/10/18 05:20 04/11/18 05:46 Lab Results-Last 24 Hrs: Lab Results-Last 24 Hours 04/11/18 04/11/18 Range/Units 05:46 05:46 Sodium 141 (137-145) mmol/L Potassium 4.8 (3.5-5.1) mmol/L Chloride 110 H (98-107) mmol/L Carbon Dioxide 25 (22-30) mmol/L Anion Gap 11.4 (5-15) MEQ/L BUN 19 H (7-17) mg/dL Creatinine 0.59 (0.52-1.04) mg/dL Estimated GFR > 60.0 ML/MIN Glucose 122 H (74-106) mg/dL Calcium 9.7 (8.4-10.2) mg/dL Iron 30 L (37-170) ug/dL TIBC 254 L (265-462) ug/dL Iron Saturation 12 L (20-39) % Vitamin B12 898 (239-931) pg/mL Folic Acid 9.78 (2.76 - >20) ng/mL Micro Results-Entire Visit: Microbiology 04/09/18 19:00 Urine Culture - Preliminary Clean Catch Midstream NO GROWTH TO DATE - Radiology Exams Ordered Rad Exams-Entire Visit: Radiology Procedures Category Date Time Status CHEST 1 VIEW (PORTABLE) Stat Exams 04/09/18 17:06 Completed CHEST WITH CONTRAST [CT] Routine Exams 04/10/18 09:52 Completed CHEST WITHOUT CONTRAST [CT] Stat Exams 04/09/18 19:28 Completed HEAD WITHOUT CONTRAST [CT] Stat Exams 04/09/18 17:06 Completed - Procedures and Test Procedures and Tests throughout Hospitalization: Therapy Orders & Screens 04/09/18 18:22 Respiratory Nebulizer STAT Comment: Diagnosis: Shortness of Breath 04/09/18 18:41 Respiratory Therapy Assessment DAILY Comment: Diagnosis: Shortness of Breath 04/10/18 02:18 Oxygen NASAL CANNULA 2 lpm Comment: Diagnosis: Shortness of Breath 04/10/18 02:52 OT Screen per Nursing Assess Comment: Protocol Order Physician Instructions: Greater than 3 points order OT Admission Screening Reason For Exam: Triggered on Admission Diagnosis: COPD/ASTHMA Open Wound/Cellutlitis/Pressure Ulcers: No Acute Fx/ORIF/Change in wt bearing status: No Severe MUSCULOSKELETAL pain: No ADL Dysfunction: Yes Acute CVA w/Hemiparesis/Hemiplegia: No Decreased Functional Mobility/Strength: Yes Sprain/Strain: No Acute Post-op Mobility Dysfunction: No Total Points: 4 PT Screen per Nursing Assess ONCE Comment: Protocol Order Physician Instructions: Greater than 3 points order PT Admission Screenin Reason For Exam: Triggered on Admission Diagnosis: COPD/ASTHMA Open Wound/Cellutlitis/Pressure Ulcers: No Acute Fx/ORIF/Change in wt bearing status: No Severe MUSCULOSKELETAL pain: No ADL Dysfunction: Yes Acute CVA w/Hemiparesis/Hemiplegia: No Decreased Functional Mobility/Strength: Yes Sprain/Strain: No Acute Post-op Mobility Dysfunction: No Total Points: 4 RT Screen per Nursing Assess ONCE Comment: Protocol Order Physician Instructions: Greater than 3 points order RT Admission Screen Reason For Exam: Triggered on Admission Diagnosis: COPD/ASTHMA Diagnosis: COPD/ASTHMA Pneumonia: No Home O2: Yes Asthma: Yes CHF: No Home CPAP/BIPAP: No Home Nebs/MDI: Yes Total Points: 14 04/10/18 07:00 Peak Expiratory Flow Rate ONCE Comment: Reason For Exam: Diagnosis: COPD/ASTHMA Respiratory MDI BID Comment: Diagnosis: COPD/ASTHMA Respiratory Therapy Assessment DAILY Comment: Diagnosis: COPD/ASTHMA Discharge Exam General Appearance: no apparent distress, alert Neurologic Exam: alert, oriented x 3, cooperative, normal mood/affect, nml cerebellar function, sensation nml, No motor deficits Skin Exam: normal color, warm, dry Eye Exam: PERRL, EOMI, eyes nml inspection Ears, Nose, Throat Exam: normal ENT inspection, pharynx normal, moist mucous membranes Neck Exam: normal inspection, non-tender, supple, full range of motion Respiratory Exam: normal breath sounds, lungs clear, No respiratory distress Cardiovascular Exam: regular rate/rhythm, normal heart sounds Gastrointestinal/Abdomen Exam: soft, No tenderness, No mass Extremity Exam: normal inspection, normal range of motion Back Exam: normal inspection, normal range of motion, No CVA tenderness, No vertebral tenderness Pelvic Exam: deferred Rectal Exam: deferred Final Diagnosis/Problem List - Final Discharge Diagnosis/Problem (1) COPD exacerbation Status: Acute (2) UTI (urinary tract infection) Status: Acute (3) Elevated d-dimer Status: Acute (4) Renal insufficiency Status: Resolved (5) Iron deficiency anemia Status: Acute - Discharge Discharge Date: 11/21/18 Disposition: Home, Self-Care Condition: Fair Prescriptions: New Prednisone 10 mg [Deltasone 10 mg] 10 mg PO DAILY #34 tablet Ferrous Sulfate 325 mg PO BID #60 tablet Cefdinir [Omnicef] 300 mg PO BID #14 capsule Metoprolol Succinate 25 mg Xl* [Toprol-Xl 25MG Tablets] 25 mg PO DAILY # 30 tab Continue Tiotropium [place] [Spiriva] 8 inh PO DAILY Omeprazole 20 MG [Prilosec 20 mg] 20 mg PO DAILY Lisinopril 40 mg PO DAILY Isosorbide Mononitrate [Isosorbide Mononitrate ER] 30 mg PO DAILY Famotidine 20 mg [Pepcid 20 MG] 20 mg PO DAILY Clonazepam 0.5 mg [Klonopin 0.5 MG] 0.5 mg PO DAILY Calcium Carbonate/Vitamin D3 [Calcium 600 + Vit D 400 Softgl] 1 each PO BID Budesonide/Formoterol Fumarate [Symbicort 80-4.5 Mcg Inhaler] 1 inh PO BID Atorvastatin Calcium [Lipitor 20MG Tablet] 20 mg PO DAILY Instructions: Urinary Tract Infection, Adult (DC), Exacerbation of COPD (DC) Follow up with: BOBBY GARCIA [ACTIVE STAFF] - 04/18/18 3:15 pm (at [facility] ) Forms: Discharge Instructions
[2018-04-11 10:41] VITALS: BP 169/93; PULSE 120
== END 2018-04-11 10:25 | disposition home or self-care (01) ==
LOC: ED 16:33 → MED SURG 04-10 01:44
PROVIDERS: ADMIT Family Medicine; ATTEND Family Medicine
DX: N39.0 Urinary tract infection, site not specified (principal); R79.89 Other specified abnormal findings of blood chemistry; N28.9 Disorder of kidney and ureter, unspecified; D50.9 Iron deficiency anemia, unspecified; I10 Essential (primary) hypertension; J45.909 Unspecified asthma, uncomplicated; Z72.0 Tobacco use; Z79.899 Other long term (current) drug therapy
CPT/HCPCS: 36000; 36415; 70450; 71045; 71250; 71260; 80048; 80053; 81001; 82607; 82746; 82805; 82962; 83540; 83550; 83735; 83880; 84484; 85025; 85027; 85379; 87086; 93005; 93041; 93268; 94150; 94640; 94762; 99285; G0378; G0480; 80307; J0696; J1650; J2930; J7609; A9270-GY